=== PATIENT | male | born 1950 | race Two or more races ===

== ENCOUNTER 2019-01-18 10:40 | Outpatient (CLI) | payer MEDICARE, OTHER | END 2019-01-18 23:59 | LOC: WOU 10:40 | PROVIDERS: ATTEND Podiatrist Foot & Ankle Surgery | DX: E11.621 Type 2 diabetes mellitus with foot ulcer (principal); L97.525 Non-pressure chronic ulcer of other part of left foot with muscle involvement without evidence of necrosis; E11.42 Type 2 diabetes mellitus with diabetic polyneuropathy; Z79.4 Long term (current) use of insulin; Z89.432 Acquired absence of left foot; I10 Essential (primary) hypertension; I73.9 Peripheral vascular disease, unspecified; Z79.82 Long term (current) use of aspirin | CPT/HCPCS: 11043 ==

== ENCOUNTER 2019-01-25 10:19 | Outpatient (CLI) | payer MEDICARE | END 2019-01-25 23:59 | disposition home health service (06) | LOC: WOU 10:19 | PROVIDERS: ATTEND Podiatrist Foot & Ankle Surgery | DX: E11.621 Type 2 diabetes mellitus with foot ulcer (principal); L97.522 Non-pressure chronic ulcer of other part of left foot with fat layer exposed; E11.42 Type 2 diabetes mellitus with diabetic polyneuropathy; Z79.4 Long term (current) use of insulin; Z79.82 Long term (current) use of aspirin; Z89.432 Acquired absence of left foot | CPT/HCPCS: 11042; 11045 ==

== ENCOUNTER 2019-02-11 10:55 | Outpatient (CLI) | payer MEDICARE | END 2019-02-11 23:59 | disposition home health service (06) | LOC: WOU 10:55 | PROVIDERS: ATTEND Podiatrist Foot & Ankle Surgery | DX: E11.621 Type 2 diabetes mellitus with foot ulcer (principal); L97.522 Non-pressure chronic ulcer of other part of left foot with fat layer exposed; R60.0 Localized edema; E11.42 Type 2 diabetes mellitus with diabetic polyneuropathy; Z89.432 Acquired absence of left foot; Z79.4 Long term (current) use of insulin; Z79.82 Long term (current) use of aspirin | CPT/HCPCS: 11042; 11045 ==

== ENCOUNTER 2019-02-18 09:55 | Outpatient (CLI) | payer MEDICARE | END 2019-02-18 23:59 | disposition home health service (06) | LOC: WOU 09:55 | PROVIDERS: ATTEND Podiatrist Foot & Ankle Surgery | DX: T87.81 Dehiscence of amputation stump (principal); E11.621 Type 2 diabetes mellitus with foot ulcer; L97.522 Non-pressure chronic ulcer of other part of left foot with fat layer exposed; E11.42 Type 2 diabetes mellitus with diabetic polyneuropathy; Z89.422 Acquired absence of other left toe(s); Z79.4 Long term (current) use of insulin; E11.69 Type 2 diabetes mellitus with other specified complication; M86.672 Other chronic osteomyelitis, left ankle and foot | CPT/HCPCS: 11042; 11045 ==

== ENCOUNTER 2019-02-25 09:58 | Outpatient (CLI) | payer MEDICARE | END 2019-02-25 23:59 | LOC: WOU 09:58 | PROVIDERS: ATTEND Podiatrist Foot & Ankle Surgery | DX: E11.621 Type 2 diabetes mellitus with foot ulcer (principal); L97.522 Non-pressure chronic ulcer of other part of left foot with fat layer exposed; E11.42 Type 2 diabetes mellitus with diabetic polyneuropathy; Z89.422 Acquired absence of other left toe(s); L84 Corns and callosities; Z79.4 Long term (current) use of insulin; Z79.82 Long term (current) use of aspirin | CPT/HCPCS: 11042 ==

== ENCOUNTER 2019-03-04 10:15 | Outpatient (CLI) | payer MEDICARE | END 2019-03-04 23:59 | disposition home health service (06) | LOC: WOU 10:15 | PROVIDERS: ATTEND Podiatrist Foot & Ankle Surgery | DX: E11.621 Type 2 diabetes mellitus with foot ulcer (principal); L97.522 Non-pressure chronic ulcer of other part of left foot with fat layer exposed; E11.42 Type 2 diabetes mellitus with diabetic polyneuropathy; Z89.422 Acquired absence of other left toe(s); Z79.4 Long term (current) use of insulin; Z79.82 Long term (current) use of aspirin | CPT/HCPCS: 11042 ==

== ENCOUNTER 2019-03-11 10:10 | Outpatient (CLI) | payer MEDICARE | END 2019-03-11 23:59 | disposition home health service (06) | LOC: WOU 10:10 | PROVIDERS: ATTEND Podiatrist Foot & Ankle Surgery | DX: T87.81 Dehiscence of amputation stump (principal); E11.621 Type 2 diabetes mellitus with foot ulcer; E11.42 Type 2 diabetes mellitus with diabetic polyneuropathy; Z89.422 Acquired absence of other left toe(s); Z79.4 Long term (current) use of insulin; L97.512 Non-pressure chronic ulcer of other part of right foot with fat layer exposed | CPT/HCPCS: 11042 ==

== ENCOUNTER → 2019-03-25 | Outpatient (CLI) | payer MEDICARE | LOC: WOU 10:00 | PROVIDERS: ATTEND Podiatrist Foot & Ankle Surgery | DX: E11.621 Type 2 diabetes mellitus with foot ulcer (principal); L97.522 Non-pressure chronic ulcer of other part of left foot with fat layer exposed; L84 Corns and callosities; Z89.422 Acquired absence of other left toe(s); Z79.4 Long term (current) use of insulin; Z79.82 Long term (current) use of aspirin; E11.42 Type 2 diabetes mellitus with diabetic polyneuropathy; E11.69 Type 2 diabetes mellitus with other specified complication; M86.672 Other chronic osteomyelitis, left ankle and foot | CPT/HCPCS: 11042 ==

== ENCOUNTER 2019-04-15 09:40 | Outpatient (CLI) | payer MEDICARE | END 2019-04-15 23:59 | LOC: WOU 09:40 | PROVIDERS: ATTEND Podiatrist Foot & Ankle Surgery | DX: E11.621 Type 2 diabetes mellitus with foot ulcer (principal); L97.522 Non-pressure chronic ulcer of other part of left foot with fat layer exposed; E11.42 Type 2 diabetes mellitus with diabetic polyneuropathy; Z89.422 Acquired absence of other left toe(s); Z79.82 Long term (current) use of aspirin; Z79.4 Long term (current) use of insulin; E11.51 Type 2 diabetes mellitus with diabetic peripheral angiopathy without gangrene | CPT/HCPCS: 11042 ==

== ENCOUNTER 2019-04-22 10:00 | Outpatient (CLI) | payer MEDICARE | END 2019-04-22 23:59 | LOC: WOU 10:00 | PROVIDERS: ATTEND Podiatrist Foot & Ankle Surgery | DX: T87.89 Other complications of amputation stump (principal); E11.621 Type 2 diabetes mellitus with foot ulcer; L97.522 Non-pressure chronic ulcer of other part of left foot with fat layer exposed; E11.42 Type 2 diabetes mellitus with diabetic polyneuropathy; Z89.422 Acquired absence of other left toe(s); E11.69 Type 2 diabetes mellitus with other specified complication; M86.60 Other chronic osteomyelitis, unspecified site; Z79.82 Long term (current) use of aspirin; Z79.4 Long term (current) use of insulin | CPT/HCPCS: 11042; 82962-TC ==

== ENCOUNTER 2019-04-29 10:00 | Outpatient (CLI) | payer MEDICARE | END 2019-04-29 23:59 | disposition home health service (06) | LOC: WOU 10:00 | PROVIDERS: ATTEND Podiatrist Foot & Ankle Surgery | DX: E11.621 Type 2 diabetes mellitus with foot ulcer (principal); L97.522 Non-pressure chronic ulcer of other part of left foot with fat layer exposed; E11.42 Type 2 diabetes mellitus with diabetic polyneuropathy; Z89.421 Acquired absence of other right toe(s); E11.69 Type 2 diabetes mellitus with other specified complication; M86.679 Other chronic osteomyelitis, unspecified ankle and foot | CPT/HCPCS: 11042 ==

== ENCOUNTER 2019-05-06 10:00 | Outpatient (CLI) | payer MEDICARE | END 2019-05-06 23:59 | disposition home health service (06) | LOC: WOU 10:00 | PROVIDERS: ATTEND Podiatrist Foot & Ankle Surgery | DX: E11.621 Type 2 diabetes mellitus with foot ulcer (principal); L97.522 Non-pressure chronic ulcer of other part of left foot with fat layer exposed; E11.42 Type 2 diabetes mellitus with diabetic polyneuropathy; E11.51 Type 2 diabetes mellitus with diabetic peripheral angiopathy without gangrene; L97.422 Non-pressure chronic ulcer of left heel and midfoot with fat layer exposed; Z79.4 Long term (current) use of insulin; Z79.82 Long term (current) use of aspirin; Z89.422 Acquired absence of other left toe(s) | CPT/HCPCS: 11042; A6210; A6207 ==

== ENCOUNTER 2019-05-13 11:00 | Outpatient (CLI) | payer MEDICARE | END 2019-05-13 23:59 | disposition home health service (06) | LOC: WOU 11:00 | PROVIDERS: ATTEND Podiatrist Foot & Ankle Surgery | DX: E11.621 Type 2 diabetes mellitus with foot ulcer (principal); L97.422 Non-pressure chronic ulcer of left heel and midfoot with fat layer exposed; E11.51 Type 2 diabetes mellitus with diabetic peripheral angiopathy without gangrene; L97.522 Non-pressure chronic ulcer of other part of left foot with fat layer exposed; E11.42 Type 2 diabetes mellitus with diabetic polyneuropathy; R60.0 Localized edema; Z79.4 Long term (current) use of insulin; Z79.82 Long term (current) use of aspirin; Z89.422 Acquired absence of other left toe(s) | CPT/HCPCS: 11042; 82962; A6210 ==

== ENCOUNTER 2019-05-20 11:10 | Outpatient (CLI) | payer MEDICARE | END 2019-05-20 23:59 | disposition home health service (06) | LOC: WOU 11:10 | PROVIDERS: ATTEND Podiatrist Foot & Ankle Surgery | DX: Z47.81 Encounter for orthopedic aftercare following surgical amputation (principal); Z89.432 Acquired absence of left foot; E11.621 Type 2 diabetes mellitus with foot ulcer; L97.522 Non-pressure chronic ulcer of other part of left foot with fat layer exposed; E11.42 Type 2 diabetes mellitus with diabetic polyneuropathy; Z79.4 Long term (current) use of insulin; Z79.82 Long term (current) use of aspirin | CPT/HCPCS: 11042; A6210 ==

== ENCOUNTER 2019-05-31 11:00 | Outpatient (CLI) | payer MEDICARE | END 2019-05-31 23:59 | disposition home health service (06) | LOC: WOU 11:00 | PROVIDERS: ATTEND Podiatrist Foot & Ankle Surgery | DX: E11.621 Type 2 diabetes mellitus with foot ulcer (principal); L97.528 Non-pressure chronic ulcer of other part of left foot with other specified severity; E11.42 Type 2 diabetes mellitus with diabetic polyneuropathy; E11.51 Type 2 diabetes mellitus with diabetic peripheral angiopathy without gangrene; Z79.4 Long term (current) use of insulin; B35.1 Tinea unguium; L60.2 Onychogryphosis; Z79.82 Long term (current) use of aspirin | CPT/HCPCS: G0463 ==

== ENCOUNTER 2019-06-14 10:10 | Outpatient (CLI) | payer MEDICARE | END 2019-06-14 23:59 | disposition home health service (06) | LOC: WOU 10:10 | PROVIDERS: ATTEND Podiatrist Foot & Ankle Surgery | DX: E11.621 Type 2 diabetes mellitus with foot ulcer (principal); L97.522 Non-pressure chronic ulcer of other part of left foot with fat layer exposed; E11.42 Type 2 diabetes mellitus with diabetic polyneuropathy; E11.51 Type 2 diabetes mellitus with diabetic peripheral angiopathy without gangrene; Z79.4 Long term (current) use of insulin; Z79.82 Long term (current) use of aspirin; Z89.432 Acquired absence of left foot | CPT/HCPCS: 11042; A6210 ==

== ENCOUNTER 2019-06-21 10:05 | Outpatient (CLI) | payer MEDICARE | END 2019-06-21 23:59 | disposition home health service (06) | LOC: WOU 10:05 | PROVIDERS: ATTEND Podiatrist Foot & Ankle Surgery | DX: E11.621 Type 2 diabetes mellitus with foot ulcer (principal); L97.525 Non-pressure chronic ulcer of other part of left foot with muscle involvement without evidence of necrosis; E11.42 Type 2 diabetes mellitus with diabetic polyneuropathy; E11.51 Type 2 diabetes mellitus with diabetic peripheral angiopathy without gangrene; Z79.4 Long term (current) use of insulin; L03.116 Cellulitis of left lower limb; Z79.82 Long term (current) use of aspirin | CPT/HCPCS: 11043; 87070; 87077; 87186 ×2; A6210 ==

== ENCOUNTER 2019-06-28 10:00 | Outpatient (CLI) | payer MEDICARE | END 2019-06-28 23:59 | disposition home health service (06) | LOC: WOU 10:00 | PROVIDERS: ATTEND Podiatrist Foot & Ankle Surgery | DX: E11.621 Type 2 diabetes mellitus with foot ulcer (principal); L97.525 Non-pressure chronic ulcer of other part of left foot with muscle involvement without evidence of necrosis; E11.42 Type 2 diabetes mellitus with diabetic polyneuropathy; E11.51 Type 2 diabetes mellitus with diabetic peripheral angiopathy without gangrene; Z79.4 Long term (current) use of insulin; L03.115 Cellulitis of right lower limb; Z79.82 Long term (current) use of aspirin | CPT/HCPCS: 11043; 11046; A6210 ==

== ENCOUNTER 2019-07-05 13:30 | Outpatient (CLI) | payer MEDICARE | END 2019-07-05 23:59 | disposition home health service (06) | LOC: WOU 13:30 | PROVIDERS: ATTEND Podiatrist Foot & Ankle Surgery | DX: E11.621 Type 2 diabetes mellitus with foot ulcer (principal); L97.525 Non-pressure chronic ulcer of other part of left foot with muscle involvement without evidence of necrosis; L03.116 Cellulitis of left lower limb; E11.42 Type 2 diabetes mellitus with diabetic polyneuropathy; E11.51 Type 2 diabetes mellitus with diabetic peripheral angiopathy without gangrene; Z79.4 Long term (current) use of insulin; Z79.82 Long term (current) use of aspirin; Z89.432 Acquired absence of left foot | CPT/HCPCS: 11043; A6210 ==

== ENCOUNTER 2019-07-12 10:10 | Outpatient (CLI) | payer MEDICARE | END 2019-07-12 23:59 | disposition home health service (06) | LOC: WOU 10:10 | PROVIDERS: ATTEND Podiatrist Foot & Ankle Surgery | DX: E11.621 Type 2 diabetes mellitus with foot ulcer (principal); L97.525 Non-pressure chronic ulcer of other part of left foot with muscle involvement without evidence of necrosis; L03.116 Cellulitis of left lower limb; E11.51 Type 2 diabetes mellitus with diabetic peripheral angiopathy without gangrene; Z79.4 Long term (current) use of insulin; Z79.82 Long term (current) use of aspirin | CPT/HCPCS: 11043; A6210 ==

== ENCOUNTER 2019-07-19 10:13 | Outpatient (CLI) | payer MEDICARE | END 2019-07-19 23:59 | disposition home health service (06) | LOC: WOU 10:13 | PROVIDERS: ATTEND Podiatrist Foot & Ankle Surgery | DX: E11.621 Type 2 diabetes mellitus with foot ulcer (principal); L97.522 Non-pressure chronic ulcer of other part of left foot with fat layer exposed; E11.42 Type 2 diabetes mellitus with diabetic polyneuropathy; Z79.4 Long term (current) use of insulin; Z79.82 Long term (current) use of aspirin | CPT/HCPCS: 11042; A6210 ==

== ENCOUNTER 2019-07-26 10:05 | Outpatient (CLI) | payer MEDICARE | END 2019-07-26 23:59 | disposition home health service (06) | LOC: WOU 10:05 | PROVIDERS: ATTEND Podiatrist Foot & Ankle Surgery | DX: E11.621 Type 2 diabetes mellitus with foot ulcer (principal); L97.522 Non-pressure chronic ulcer of other part of left foot with fat layer exposed; E11.42 Type 2 diabetes mellitus with diabetic polyneuropathy; E11.51 Type 2 diabetes mellitus with diabetic peripheral angiopathy without gangrene; Z89.432 Acquired absence of left foot; Z79.4 Long term (current) use of insulin; Z79.82 Long term (current) use of aspirin | CPT/HCPCS: 11042 ==

== ENCOUNTER 2019-08-02 11:00 | Outpatient (CLI) | payer MEDICARE | END 2019-08-02 23:59 | disposition home or self-care (01) | LOC: WOU 11:00 | PROVIDERS: ATTEND Podiatrist Foot & Ankle Surgery | DX: E11.621 Type 2 diabetes mellitus with foot ulcer (principal); L97.522 Non-pressure chronic ulcer of other part of left foot with fat layer exposed; E11.42 Type 2 diabetes mellitus with diabetic polyneuropathy; E11.51 Type 2 diabetes mellitus with diabetic peripheral angiopathy without gangrene; Z79.4 Long term (current) use of insulin; Z89.432 Acquired absence of left foot; Z79.82 Long term (current) use of aspirin | CPT/HCPCS: 11042 ==

== ENCOUNTER 2019-08-09 10:05 | Outpatient (CLI) | payer MEDICARE | END 2019-08-09 23:59 | disposition home or self-care (01) | LOC: WOU 10:05 | PROVIDERS: ATTEND Podiatrist Foot & Ankle Surgery | DX: E11.621 Type 2 diabetes mellitus with foot ulcer (principal); L97.522 Non-pressure chronic ulcer of other part of left foot with fat layer exposed; E11.42 Type 2 diabetes mellitus with diabetic polyneuropathy; Z79.4 Long term (current) use of insulin; Z79.82 Long term (current) use of aspirin; Z89.432 Acquired absence of left foot | CPT/HCPCS: 11042 ==

== ENCOUNTER 2019-08-16 10:08 | Outpatient (CLI) | payer MEDICARE | END 2019-08-16 23:59 | disposition home or self-care (01) | LOC: WOU 10:08 | PROVIDERS: ATTEND Podiatrist Foot & Ankle Surgery | DX: E11.621 Type 2 diabetes mellitus with foot ulcer (principal); L97.522 Non-pressure chronic ulcer of other part of left foot with fat layer exposed; E11.42 Type 2 diabetes mellitus with diabetic polyneuropathy; E11.51 Type 2 diabetes mellitus with diabetic peripheral angiopathy without gangrene; Z79.4 Long term (current) use of insulin; Z89.432 Acquired absence of left foot; Z79.82 Long term (current) use of aspirin | CPT/HCPCS: 11042 ==

== ENCOUNTER 2019-08-23 10:00 | Outpatient (CLI) | payer MEDICARE | END 2019-08-23 23:59 | disposition home or self-care (01) | LOC: WOU 10:00 | PROVIDERS: ATTEND Podiatrist Foot & Ankle Surgery | DX: E11.621 Type 2 diabetes mellitus with foot ulcer (principal); L97.522 Non-pressure chronic ulcer of other part of left foot with fat layer exposed; E11.42 Type 2 diabetes mellitus with diabetic polyneuropathy; E11.51 Type 2 diabetes mellitus with diabetic peripheral angiopathy without gangrene; Z79.4 Long term (current) use of insulin; B35.3 Tinea pedis; Z89.432 Acquired absence of left foot; Z79.82 Long term (current) use of aspirin | CPT/HCPCS: 11042 ==

== ENCOUNTER 2019-08-30 10:20 | Outpatient (CLI) | payer MEDICARE | END 2019-08-30 23:59 | disposition home or self-care (01) | LOC: WOU 10:20 | PROVIDERS: ATTEND Podiatrist Foot & Ankle Surgery | DX: E11.621 Type 2 diabetes mellitus with foot ulcer (principal); E11.42 Type 2 diabetes mellitus with diabetic polyneuropathy; L97.522 Non-pressure chronic ulcer of other part of left foot with fat layer exposed; E11.51 Type 2 diabetes mellitus with diabetic peripheral angiopathy without gangrene; Z79.4 Long term (current) use of insulin; Z79.82 Long term (current) use of aspirin; Z89.432 Acquired absence of left foot | CPT/HCPCS: 11042 ==

== ENCOUNTER 2019-09-06 10:15 | Outpatient (CLI) | payer MEDICARE, MEDICAID | END 2019-09-06 23:59 | disposition home or self-care (01) | LOC: WOU 10:15 | PROVIDERS: ATTEND Podiatrist Foot & Ankle Surgery | DX: E11.621 Type 2 diabetes mellitus with foot ulcer (principal); L97.522 Non-pressure chronic ulcer of other part of left foot with fat layer exposed; E11.51 Type 2 diabetes mellitus with diabetic peripheral angiopathy without gangrene; E11.42 Type 2 diabetes mellitus with diabetic polyneuropathy; Z79.4 Long term (current) use of insulin; B35.1 Tinea unguium; Z89.432 Acquired absence of left foot; Z79.82 Long term (current) use of aspirin | CPT/HCPCS: 11042 ==

== ENCOUNTER 2019-09-13 10:00 | Outpatient (CLI) | payer MEDICARE, MEDICAID | END 2019-09-13 23:59 | disposition home or self-care (01) | LOC: WOU 10:00 | PROVIDERS: ATTEND Podiatrist Foot & Ankle Surgery | DX: E11.42 Type 2 diabetes mellitus with diabetic polyneuropathy (principal); Z79.4 Long term (current) use of insulin; L84 Corns and callosities; B35.1 Tinea unguium; Z89.432 Acquired absence of left foot; Z79.82 Long term (current) use of aspirin | CPT/HCPCS: G0463 ==

== ENCOUNTER 2019-09-27 10:08 | Outpatient (CLI) | payer MEDICARE, MEDICAID | END 2019-09-27 23:59 | disposition home or self-care (01) | LOC: WOU 10:08 | PROVIDERS: ATTEND Podiatrist Foot & Ankle Surgery | DX: Z09 Encounter for follow-up examination after completed treatment for conditions other than malignant neoplasm (principal); E11.42 Type 2 diabetes mellitus with diabetic polyneuropathy; E11.51 Type 2 diabetes mellitus with diabetic peripheral angiopathy without gangrene; Z79.4 Long term (current) use of insulin; L84 Corns and callosities; B35.3 Tinea pedis; Z89.432 Acquired absence of left foot; Z86.31 Personal history of diabetic foot ulcer; Z79.82 Long term (current) use of aspirin | CPT/HCPCS: G0463 ==

== ENCOUNTER 2019-11-29 10:10 | Outpatient (CLI) | payer MEDICARE, MEDICAID | END 2019-11-29 23:59 | disposition home or self-care (01) | LOC: WOU 10:10 | PROVIDERS: ATTEND Podiatrist Foot & Ankle Surgery | DX: E11.42 Type 2 diabetes mellitus with diabetic polyneuropathy (principal); E11.51 Type 2 diabetes mellitus with diabetic peripheral angiopathy without gangrene; L84 Corns and callosities; B35.1 Tinea unguium; Z89.432 Acquired absence of left foot; Z79.4 Long term (current) use of insulin; Z79.82 Long term (current) use of aspirin | CPT/HCPCS: G0463 ==

== ENCOUNTER 2020-01-31 10:10 | Outpatient (CLI) | payer MEDICARE, MEDICAID | END 2020-01-31 23:59 | disposition home or self-care (01) | LOC: WOU 10:10 | PROVIDERS: ATTEND Podiatrist Foot & Ankle Surgery | DX: Z09 Encounter for follow-up examination after completed treatment for conditions other than malignant neoplasm (principal); Z86.31 Personal history of diabetic foot ulcer; E11.42 Type 2 diabetes mellitus with diabetic polyneuropathy; E11.51 Type 2 diabetes mellitus with diabetic peripheral angiopathy without gangrene; Z79.4 Long term (current) use of insulin; B35.1 Tinea unguium; B35.3 Tinea pedis; L84 Corns and callosities; Z89.432 Acquired absence of left foot; Z79.82 Long term (current) use of aspirin | CPT/HCPCS: G0463 ==

== ENCOUNTER 2020-04-03 10:30 | Outpatient (CLI) | payer MEDICARE, MEDICAID | END 2020-04-03 23:59 | disposition home or self-care (01) | LOC: WOU 10:30 | PROVIDERS: ATTEND Podiatrist Foot & Ankle Surgery | DX: L02.612 Cutaneous abscess of left foot (principal); L03.116 Cellulitis of left lower limb; L84 Corns and callosities; E11.42 Type 2 diabetes mellitus with diabetic polyneuropathy; E11.51 Type 2 diabetes mellitus with diabetic peripheral angiopathy without gangrene; Z79.4 Long term (current) use of insulin; B35.1 Tinea unguium; B35.3 Tinea pedis; Z89.422 Acquired absence of other left toe(s); Z79.82 Long term (current) use of aspirin | CPT/HCPCS: 10060; 87070-TC ==

== ENCOUNTER 2020-04-10 10:30 | Outpatient (CLI) | payer MEDICARE, MEDICAID | END 2020-04-10 23:59 | disposition home or self-care (01) | LOC: WOU 10:30 | PROVIDERS: ATTEND Podiatrist Foot & Ankle Surgery | DX: E11.42 Type 2 diabetes mellitus with diabetic polyneuropathy (principal); E11.51 Type 2 diabetes mellitus with diabetic peripheral angiopathy without gangrene; Z79.4 Long term (current) use of insulin; L84 Corns and callosities; B35.3 Tinea pedis; B35.1 Tinea unguium; Z89.432 Acquired absence of left foot; Z79.82 Long term (current) use of aspirin | CPT/HCPCS: 11042; G0463 ==

== ENCOUNTER 2020-04-17 10:29 | Outpatient (CLI) | payer MEDICARE, MEDICAID ==
[2020-04-17] MEDS ORDERED: MUPIROCIN 2% CREAM 15 GM TUBE TP ONE (10:52)
== END 2020-04-17 23:59 | disposition home or self-care (01) ==
LOC: WOU 10:29
PROVIDERS: ATTEND Podiatrist Foot & Ankle Surgery
DX: E11.621 Type 2 diabetes mellitus with foot ulcer (principal); L97.422 Non-pressure chronic ulcer of left heel and midfoot with fat layer exposed; E11.42 Type 2 diabetes mellitus with diabetic polyneuropathy; E11.51 Type 2 diabetes mellitus with diabetic peripheral angiopathy without gangrene; Z79.4 Long term (current) use of insulin; L84 Corns and callosities; B35.3 Tinea pedis; B35.1 Tinea unguium; L03.116 Cellulitis of left lower limb; L02.612 Cutaneous abscess of left foot
CPT/HCPCS: 11042; 87070-TC; 87075-TC; 87186-TC

== ENCOUNTER 2020-04-24 10:30 | Outpatient (CLI) | payer MEDICARE, MEDICAID | END 2020-04-24 23:59 | disposition home or self-care (01) | LOC: WOU 10:30 | PROVIDERS: ATTEND Podiatrist Foot & Ankle Surgery | DX: E11.621 Type 2 diabetes mellitus with foot ulcer (principal); L97.422 Non-pressure chronic ulcer of left heel and midfoot with fat layer exposed; L03.116 Cellulitis of left lower limb; E11.42 Type 2 diabetes mellitus with diabetic polyneuropathy; E11.51 Type 2 diabetes mellitus with diabetic peripheral angiopathy without gangrene; Z79.4 Long term (current) use of insulin; L84 Corns and callosities; B35.3 Tinea pedis; B35.1 Tinea unguium; Z89.432 Acquired absence of left foot; Z79.82 Long term (current) use of aspirin | CPT/HCPCS: 11042; A6407 ==

== ENCOUNTER 2020-05-01 10:30 | Outpatient (CLI) | payer MEDICARE, MEDICAID | END 2020-05-01 23:59 | disposition home or self-care (01) | LOC: WOU 10:30 | PROVIDERS: ATTEND Podiatrist Foot & Ankle Surgery | DX: E11.621 Type 2 diabetes mellitus with foot ulcer (principal); L97.422 Non-pressure chronic ulcer of left heel and midfoot with fat layer exposed; E11.42 Type 2 diabetes mellitus with diabetic polyneuropathy; E11.51 Type 2 diabetes mellitus with diabetic peripheral angiopathy without gangrene; Z79.4 Long term (current) use of insulin; L03.116 Cellulitis of left lower limb; L02.612 Cutaneous abscess of left foot; B35.1 Tinea unguium; B35.3 Tinea pedis; L84 Corns and callosities; Z89.432 Acquired absence of left foot; Z79.82 Long term (current) use of aspirin | CPT/HCPCS: 11042; 87070-TC; 87075-TC ==

== ENCOUNTER 2020-05-08 10:30 | Outpatient (CLI) | payer MEDICARE, MEDICAID | END 2020-05-08 23:59 | disposition home or self-care (01) | LOC: WOU 10:30 | PROVIDERS: ATTEND Podiatrist Foot & Ankle Surgery | DX: E11.621 Type 2 diabetes mellitus with foot ulcer (principal); L97.422 Non-pressure chronic ulcer of left heel and midfoot with fat layer exposed; E11.42 Type 2 diabetes mellitus with diabetic polyneuropathy; E11.51 Type 2 diabetes mellitus with diabetic peripheral angiopathy without gangrene; Z79.4 Long term (current) use of insulin; L03.116 Cellulitis of left lower limb; L84 Corns and callosities; B35.3 Tinea pedis; B35.1 Tinea unguium; Z89.432 Acquired absence of left foot; Z79.82 Long term (current) use of aspirin | CPT/HCPCS: G0463 ==

== ENCOUNTER 2020-05-15 10:30 | Outpatient (CLI) | payer MEDICARE, MEDICAID | END 2020-05-15 23:59 | disposition home or self-care (01) | LOC: WOU 10:30 | PROVIDERS: ATTEND Podiatrist Foot & Ankle Surgery | DX: E11.42 Type 2 diabetes mellitus with diabetic polyneuropathy (principal); E11.51 Type 2 diabetes mellitus with diabetic peripheral angiopathy without gangrene; L84 Corns and callosities; B35.1 Tinea unguium; B35.3 Tinea pedis; Z89.432 Acquired absence of left foot; Z79.4 Long term (current) use of insulin; Z79.82 Long term (current) use of aspirin | CPT/HCPCS: G0463 ==

== ENCOUNTER 2020-05-29 10:33 | Outpatient (CLI) | payer MEDICARE, MEDICAID | END 2020-05-29 23:59 | disposition home or self-care (01) | LOC: WOU 10:33 | PROVIDERS: ATTEND Podiatrist Foot & Ankle Surgery | DX: Z09 Encounter for follow-up examination after completed treatment for conditions other than malignant neoplasm (principal); E11.42 Type 2 diabetes mellitus with diabetic polyneuropathy; E11.51 Type 2 diabetes mellitus with diabetic peripheral angiopathy without gangrene; Z79.4 Long term (current) use of insulin; L84 Corns and callosities; Z86.31 Personal history of diabetic foot ulcer; Z89.432 Acquired absence of left foot; Z79.82 Long term (current) use of aspirin | CPT/HCPCS: G0463 ==

== ENCOUNTER 2020-07-03 10:33 | Outpatient (CLI) | payer MEDICARE, OTHER ==
[2020-07-03] MEDS ORDERED: SILVER NITRATE APPLICATOR 1 EA BOX ONE (11:04)
[2020-07-03] MEDS ORDERED: UREA 10% -AHA 4% CREAM 57 GM TUBE ONE (11:06)
== END 2020-07-03 23:59 | disposition home or self-care (01) ==
LOC: WOU 10:33
PROVIDERS: ATTEND Podiatrist Foot & Ankle Surgery
DX: L84 Corns and callosities (principal); E11.42 Type 2 diabetes mellitus with diabetic polyneuropathy; E11.52 Type 2 diabetes mellitus with diabetic peripheral angiopathy with gangrene; Z79.4 Long term (current) use of insulin; B35.1 Tinea unguium; L60.2 Onychogryphosis; Z86.31 Personal history of diabetic foot ulcer; Z89.432 Acquired absence of left foot; Z79.82 Long term (current) use of aspirin
CPT/HCPCS: G0463

== ENCOUNTER → 2020-09-04 | Outpatient (CLI) | payer MEDICARE, OTHER | END | disposition home or self-care (01) | LOC: WOU 11:00 | PROVIDERS: ATTEND Podiatrist Foot & Ankle Surgery | DX: S90.32XA Contusion of left foot, initial encounter (principal); X58.XXXA Exposure to other specified factors, initial encounter; Y92.89 Other specified places as the place of occurrence of the external cause; E11.51 Type 2 diabetes mellitus with diabetic peripheral angiopathy without gangrene; Z79.4 Long term (current) use of insulin; L84 Corns and callosities; B35.1 Tinea unguium; Z79.82 Long term (current) use of aspirin; Z89.432 Acquired absence of left foot; Z86.31 Personal history of diabetic foot ulcer | CPT/HCPCS: G0463 ==

== ENCOUNTER 2020-09-11 10:40 | Outpatient (CLI) | payer MEDICARE, OTHER | END 2020-09-11 23:59 | disposition home or self-care (01) | LOC: WOU 10:40 | PROVIDERS: ATTEND Podiatrist Foot & Ankle Surgery | DX: E11.621 Type 2 diabetes mellitus with foot ulcer (principal); L97.422 Non-pressure chronic ulcer of left heel and midfoot with fat layer exposed; E11.51 Type 2 diabetes mellitus with diabetic peripheral angiopathy without gangrene; Z79.4 Long term (current) use of insulin; L84 Corns and callosities; Z89.422 Acquired absence of other left toe(s); Z79.82 Long term (current) use of aspirin | CPT/HCPCS: 11042; A6209 ==

== ENCOUNTER 2020-09-18 10:53 | Outpatient (CLI) | payer MEDICARE, OTHER | END 2020-09-18 23:59 | disposition home or self-care (01) | LOC: WOU 10:53 | PROVIDERS: ATTEND Podiatrist Foot & Ankle Surgery | DX: E11.621 Type 2 diabetes mellitus with foot ulcer (principal); L97.422 Non-pressure chronic ulcer of left heel and midfoot with fat layer exposed; E11.51 Type 2 diabetes mellitus with diabetic peripheral angiopathy without gangrene; Z89.432 Acquired absence of left foot; Z79.4 Long term (current) use of insulin; Z79.82 Long term (current) use of aspirin | CPT/HCPCS: 11042; A6209 ==

== ENCOUNTER 2020-09-25 10:30 | Outpatient (CLI) | payer MEDICARE, OTHER | END 2020-09-25 23:59 | disposition home or self-care (01) | LOC: WOU 10:30 | PROVIDERS: ATTEND Podiatrist Foot & Ankle Surgery | DX: E11.621 Type 2 diabetes mellitus with foot ulcer (principal); L97.522 Non-pressure chronic ulcer of other part of left foot with fat layer exposed; E11.51 Type 2 diabetes mellitus with diabetic peripheral angiopathy without gangrene; Z79.4 Long term (current) use of insulin; L84 Corns and callosities; B35.1 Tinea unguium; Z89.432 Acquired absence of left foot; Z79.82 Long term (current) use of aspirin | CPT/HCPCS: 11042; A6209 ==

== ENCOUNTER 2020-10-02 10:30 | Outpatient (CLI) | payer MEDICARE, OTHER | END 2020-10-02 23:59 | disposition home or self-care (01) | LOC: WOU 10:30 | PROVIDERS: ATTEND Podiatrist Foot & Ankle Surgery | DX: L84 Corns and callosities (principal); E11.51 Type 2 diabetes mellitus with diabetic peripheral angiopathy without gangrene; Z79.4 Long term (current) use of insulin; B35.1 Tinea unguium; Z89.432 Acquired absence of left foot; Z79.82 Long term (current) use of aspirin | CPT/HCPCS: G0463 ==

== ENCOUNTER 2020-10-16 10:33 | Outpatient (CLI) | payer MEDICARE, OTHER ==
[2020-10-16] MEDS ORDERED: UREA 10% -AHA 4% CREAM 57 GM TUBE ONE (10:44)
== END 2020-10-16 23:59 | disposition home or self-care (01) ==
LOC: WOU 10:33
PROVIDERS: ATTEND Podiatrist Foot & Ankle Surgery
DX: Z09 Encounter for follow-up examination after completed treatment for conditions other than malignant neoplasm (principal); E11.51 Type 2 diabetes mellitus with diabetic peripheral angiopathy without gangrene; Z86.31 Personal history of diabetic foot ulcer; L84 Corns and callosities; Z89.422 Acquired absence of other left toe(s); Z79.4 Long term (current) use of insulin; Z79.82 Long term (current) use of aspirin
CPT/HCPCS: G0463

== ENCOUNTER 2020-11-13 10:20 | Outpatient (CLI) | payer MEDICARE, OTHER | END 2020-11-13 23:59 | disposition home or self-care (01) | LOC: WOU 10:20 | PROVIDERS: ATTEND Podiatrist Foot & Ankle Surgery | DX: E11.621 Type 2 diabetes mellitus with foot ulcer (principal); L97.522 Non-pressure chronic ulcer of other part of left foot with fat layer exposed; E11.51 Type 2 diabetes mellitus with diabetic peripheral angiopathy without gangrene; Z79.4 Long term (current) use of insulin; L84 Corns and callosities; B35.1 Tinea unguium; Z89.432 Acquired absence of left foot; Z79.82 Long term (current) use of aspirin | CPT/HCPCS: 11042; A6209 ==

== ENCOUNTER 2020-11-20 10:36 | Outpatient (CLI) | payer MEDICARE, OTHER | END 2020-11-20 23:59 | disposition home or self-care (01) | LOC: WOU 10:36 | PROVIDERS: ATTEND Podiatrist Foot & Ankle Surgery | DX: E11.621 Type 2 diabetes mellitus with foot ulcer (principal); L97.522 Non-pressure chronic ulcer of other part of left foot with fat layer exposed; L84 Corns and callosities; B35.1 Tinea unguium; E11.51 Type 2 diabetes mellitus with diabetic peripheral angiopathy without gangrene; Z89.432 Acquired absence of left foot; I10 Essential (primary) hypertension; Z79.4 Long term (current) use of insulin; Z79.82 Long term (current) use of aspirin | CPT/HCPCS: 11042; A6209 ==

== ENCOUNTER 2020-11-27 10:51 | Outpatient (CLI) | payer MEDICARE, OTHER | END 2020-11-27 23:59 | disposition home or self-care (01) | LOC: WOU 10:51 | PROVIDERS: ATTEND Podiatrist Foot & Ankle Surgery | DX: E11.621 Type 2 diabetes mellitus with foot ulcer (principal); L97.422 Non-pressure chronic ulcer of left heel and midfoot with fat layer exposed; Z89.432 Acquired absence of left foot; Z79.4 Long term (current) use of insulin; Z79.899 Other long term (current) drug therapy; E11.69 Type 2 diabetes mellitus with other specified complication; M86.672 Other chronic osteomyelitis, left ankle and foot; E11.51 Type 2 diabetes mellitus with diabetic peripheral angiopathy without gangrene; B35.1 Tinea unguium; Z86.31 Personal history of diabetic foot ulcer | CPT/HCPCS: 11042; A6209 ==

== ENCOUNTER 2020-12-04 08:30 | Outpatient (CLI) | payer MEDICARE, OTHER | END 2020-12-04 23:59 | disposition home or self-care (01) | LOC: WOU 08:30 | PROVIDERS: ATTEND Podiatrist Foot & Ankle Surgery | DX: E11.621 Type 2 diabetes mellitus with foot ulcer (principal); L97.422 Non-pressure chronic ulcer of left heel and midfoot with fat layer exposed; E11.51 Type 2 diabetes mellitus with diabetic peripheral angiopathy without gangrene; I10 Essential (primary) hypertension; Z86.31 Personal history of diabetic foot ulcer; E11.40 Type 2 diabetes mellitus with diabetic neuropathy, unspecified; Z89.422 Acquired absence of other left toe(s); B35.1 Tinea unguium; L84 Corns and callosities; Z79.4 Long term (current) use of insulin; Z79.82 Long term (current) use of aspirin; Z79.899 Other long term (current) drug therapy | CPT/HCPCS: 11042; A6209 ==

== ENCOUNTER 2020-12-11 10:43 | Outpatient (CLI) | payer MEDICARE, OTHER | END 2020-12-11 23:59 | disposition home or self-care (01) | LOC: WOU 10:43 | PROVIDERS: ATTEND Podiatrist Foot & Ankle Surgery | DX: E11.621 Type 2 diabetes mellitus with foot ulcer (principal); L97.422 Non-pressure chronic ulcer of left heel and midfoot with fat layer exposed; Z89.422 Acquired absence of other left toe(s); E11.51 Type 2 diabetes mellitus with diabetic peripheral angiopathy without gangrene; L84 Corns and callosities; E11.69 Type 2 diabetes mellitus with other specified complication; M86.672 Other chronic osteomyelitis, left ankle and foot; I10 Essential (primary) hypertension; B35.1 Tinea unguium; Z79.4 Long term (current) use of insulin; Z79.82 Long term (current) use of aspirin; Z79.899 Other long term (current) drug therapy | CPT/HCPCS: 11042; A6209 ==

== ENCOUNTER 2020-12-18 10:30 | Outpatient (CLI) | payer MEDICARE, OTHER ==
[2020-12-18] MEDS ORDERED: UREA 10% -AHA 4% CREAM 57 GM TUBE ONE (11:16)
== END 2020-12-18 23:59 | disposition home or self-care (01) ==
LOC: WOU 10:30
PROVIDERS: ATTEND Podiatrist Foot & Ankle Surgery
DX: E11.621 Type 2 diabetes mellitus with foot ulcer (principal); L97.522 Non-pressure chronic ulcer of other part of left foot with fat layer exposed; L84 Corns and callosities; Z89.422 Acquired absence of other left toe(s); E11.51 Type 2 diabetes mellitus with diabetic peripheral angiopathy without gangrene; Z86.31 Personal history of diabetic foot ulcer; B35.1 Tinea unguium; I10 Essential (primary) hypertension; Z83.3 Family history of diabetes mellitus; Z79.4 Long term (current) use of insulin; Z79.82 Long term (current) use of aspirin; Z79.899 Other long term (current) drug therapy; E11.40 Type 2 diabetes mellitus with diabetic neuropathy, unspecified
CPT/HCPCS: 11042

== ENCOUNTER 2020-12-25 11:00 | Outpatient (CLI) | payer MEDICARE, OTHER | END 2020-12-25 23:59 | disposition home or self-care (01) | LOC: WOU 11:00 | PROVIDERS: ATTEND Podiatrist Foot & Ankle Surgery | DX: E11.621 Type 2 diabetes mellitus with foot ulcer (principal); L97.522 Non-pressure chronic ulcer of other part of left foot with fat layer exposed; E11.51 Type 2 diabetes mellitus with diabetic peripheral angiopathy without gangrene; Z79.4 Long term (current) use of insulin; B35.1 Tinea unguium; L84 Corns and callosities; Z89.432 Acquired absence of left foot; Z79.82 Long term (current) use of aspirin | CPT/HCPCS: 11042 ==

== ENCOUNTER 2021-01-01 10:37 | Outpatient (CLI) | payer MEDICARE, OTHER | END 2021-01-01 23:59 | disposition home or self-care (01) | LOC: WOU 10:37 | PROVIDERS: ATTEND Podiatrist Foot & Ankle Surgery | DX: E11.621 Type 2 diabetes mellitus with foot ulcer (principal); L97.522 Non-pressure chronic ulcer of other part of left foot with fat layer exposed; E11.51 Type 2 diabetes mellitus with diabetic peripheral angiopathy without gangrene; Z79.4 Long term (current) use of insulin; B35.1 Tinea unguium; L84 Corns and callosities; Z89.432 Acquired absence of left foot; Z79.82 Long term (current) use of aspirin | CPT/HCPCS: 11042 ==

== ENCOUNTER 2021-01-08 10:40 | Outpatient (CLI) | payer MEDICARE, OTHER | END 2021-01-08 23:59 | disposition home or self-care (01) | LOC: WOU 10:40 | PROVIDERS: ATTEND Podiatrist Foot & Ankle Surgery | DX: E11.621 Type 2 diabetes mellitus with foot ulcer (principal); L97.522 Non-pressure chronic ulcer of other part of left foot with fat layer exposed; E11.51 Type 2 diabetes mellitus with diabetic peripheral angiopathy without gangrene; Z79.4 Long term (current) use of insulin; L84 Corns and callosities; Z89.432 Acquired absence of left foot | CPT/HCPCS: 11042 ==

== ENCOUNTER 2021-01-15 10:30 | Outpatient (CLI) | payer MEDICARE, OTHER | END 2021-01-15 23:59 | disposition home or self-care (01) | LOC: WOU 10:30 | PROVIDERS: ATTEND Podiatrist Foot & Ankle Surgery | DX: E11.621 Type 2 diabetes mellitus with foot ulcer (principal); L97.522 Non-pressure chronic ulcer of other part of left foot with fat layer exposed; E11.51 Type 2 diabetes mellitus with diabetic peripheral angiopathy without gangrene; L84 Corns and callosities; B35.1 Tinea unguium; Z89.432 Acquired absence of left foot; Z79.4 Long term (current) use of insulin; Z79.82 Long term (current) use of aspirin | CPT/HCPCS: 11042; 87070-TC; 87075-TC ==

== ENCOUNTER 2021-01-22 10:30 | Outpatient (CLI) | payer MEDICARE, OTHER | END 2021-01-22 23:59 | disposition home or self-care (01) | LOC: WOU 10:30 | PROVIDERS: ATTEND Podiatrist Foot & Ankle Surgery | DX: E11.621 Type 2 diabetes mellitus with foot ulcer (principal); L97.528 Non-pressure chronic ulcer of other part of left foot with other specified severity; E11.51 Type 2 diabetes mellitus with diabetic peripheral angiopathy without gangrene; Z79.4 Long term (current) use of insulin; L84 Corns and callosities; B35.1 Tinea unguium; Z79.82 Long term (current) use of aspirin; Z89.432 Acquired absence of left foot | CPT/HCPCS: A6209; G0463 ==

== ENCOUNTER 2021-01-29 10:30 | Outpatient (CLI) | payer MEDICARE, OTHER | END 2021-01-29 23:59 | disposition home or self-care (01) | LOC: WOU 10:30 | PROVIDERS: ATTEND Podiatrist Foot & Ankle Surgery | DX: E11.621 Type 2 diabetes mellitus with foot ulcer (principal); L97.512 Non-pressure chronic ulcer of other part of right foot with fat layer exposed; E11.51 Type 2 diabetes mellitus with diabetic peripheral angiopathy without gangrene; Z79.4 Long term (current) use of insulin; L84 Corns and callosities; Z89.432 Acquired absence of left foot; B35.1 Tinea unguium; I10 Essential (primary) hypertension; Z79.82 Long term (current) use of aspirin | CPT/HCPCS: 11042; A6209 ==

== ENCOUNTER 2021-02-12 10:35 | Outpatient (CLI) | payer MEDICARE, OTHER ==
[2021-02-12] MEDS ORDERED: CADEXOMER IODINE UD 5 GM TUBE ONE (11:19)
== END 2021-02-12 23:59 | disposition home or self-care (01) ==
LOC: WOU 10:35
PROVIDERS: ATTEND Podiatrist Foot & Ankle Surgery
DX: E11.621 Type 2 diabetes mellitus with foot ulcer (principal); L97.522 Non-pressure chronic ulcer of other part of left foot with fat layer exposed; E11.51 Type 2 diabetes mellitus with diabetic peripheral angiopathy without gangrene; Z89.432 Acquired absence of left foot; L84 Corns and callosities; B35.1 Tinea unguium; Z79.4 Long term (current) use of insulin; Z79.82 Long term (current) use of aspirin
CPT/HCPCS: 11042

== ENCOUNTER 2021-07-09 05:57 | Emergency (ER) | payer MEDICARE, OTHER ==
[~2021-07-09] VITALS: Ht 175.3 cm; Wt 72.6 kg
--- NOTE | 2021-07-09 06:15 | NUR ---
FAN FROM HOME C/O A "SUDDEN SEVERE SHARP RIGHTSIDED LEG PAIN". PATIENT ALERT AND ORIENTED X3. AMBULATORY WITH NON LABORED BREATHING PATIENT IN BED 03 ON MONITOR AND POX.
--- NOTE | 2021-07-09 06:35 | NUR ---
GRADUATE RECRUITER AT PT'S BEDSIDE
[2021-07-09] MEDS ORDERED: KETOROLAC TROMETHAMINE 15 MG/ML VIAL ONE (06:37)
[2021-07-09] MEDS: KETOROLAC TROMETHAMINE INJ 30 MG/ML VIAL IM ONE (06:44)
--- NOTE | 2021-07-09 07:14 | NUR ---
US TECH AT BD SIDE
[2021-07-09] MEDS ORDERED: HYDR-4303 PO (08:07)
[2021-07-09] MEDS ORDERED: IBUP-1955 PO (08:07)
--- NOTE | 2021-07-09 08:27 | NUR ---
CALLED [facility] AND SET UP [facility]SPORT HOME ETA [phone]
--- NOTE | 2021-07-09 09:06 | NUR ---
REPORT GIVEN TO AMBULANCE STAFF
[2021-07-09 09:15] VITALS: BP 142/76
--- NOTE | 2021-07-09 09:15 | NUR ---
Patient discharged to home in stable condition. Written and verbal after care instructions given. Patient verbalizes understanding of instruction.
== END 2021-07-09 09:15 | disposition home or self-care (01) ==
LOC: ER 05:59
DX: M17.11 Unilateral primary osteoarthritis, right knee (principal); M25.461 Effusion, right knee; I10 Essential (primary) hypertension; E11.9 Type 2 diabetes mellitus without complications
CPT/HCPCS: 73564; 93971; 96372; 99284; J1885